=== PATIENT | male | born 1995 | race Hispanic/Latino ===

== ENCOUNTER 2017-10-28 14:22 | Emergency (ER) | payer OTHER ==
[~2017-10-28] VITALS: Ht 188 cm; Wt 102.1 kg
[~2017-10-28 14:22] MED LIST: AUGMENTIN 875-1 EACH PO; CYCLOBENZAPRINE10 M1 PO; NAPROSYN500 M1 PO; PREDNISONE50 M1 PO; TESSALON PERLE100 M1 PO
--- NOTE | 2017-10-28 17:16 | ED GENERAL ADULT ---
History of Present Illness General Chief Complaint: General Adult Stated Complaint: CHEST CONGESTION,COUGH W/BLOODY SPUTUM,SORE THT Source: patient Exam Limitations: no limitations Vital Signs & Intake/Output Vital Signs & Intake/Output Vital Signs Date Time Temp Pulse Resp B/P B/P Pulse O2 O2 Flow FiO2 Mean Ox Delivery Rate 10/28 1844 98.6 83 18 148/82 97 Room Air 10/28 1630 98.5 84 18 141/75 97 Room Air Room Air 10/28 1448 98.2 74 18 128/78 99 Room Air Allergies Coded Allergies: haloperidol (From HALDOL) (Severe, U 10/28/17) Uncoded Allergies: TRANQUILIZER?? (RASH JAW LOCKED 11/25/12) Reconcile Medications Amoxicillin/Potassium Clav (Augmentin 875-125 Tablet) 1 EACH TABLET 1 TAB PO BID BRONCHITIS Azithromycin (Zithromax) 250 MG TABLET 1 DP PO AD BRONCHITIS 2 the first day followed by 1 for days 2-5 Benzonatate (Tessalon Perle) 100 MG CAPSULE 1-2 CAP PO TID PRN COUGH Cyclobenzaprine HCl 10 MG TABLET 1 TAB PO TID PRN muscle relaxant Naproxen (Naprosyn) 500 MG TABLET 1 TAB PO Q12H PRN pain/inflammation Prednisone 50 MG TABLET 1 TAB PO DAILY BRONCHITIS Triage Note: 22M REPORTS CHEST CONGESTION WITH BLOODY SPUTUM FROM COUGH SINCE THIS MORNING. HE REPORTS A SORE THROAT SINCE YESTERDAY. OROPHARYNX PINK AND WITHOUT SWELLING OR EXUDATE. NO GAETANO BLOOD VISUALIZED ON EXAM. SPEECH CLEAR. COLORING APPROPRIATE. MEDICATED WITH MOTRIN AND STREP SWAB SENT TO LAB Triage Nurses Notes Reviewed? yes Onset: Abrupt Duration: hour(s): Timing: recent history HPI: 10/28/17 22-year-old male presents to the emergency department with sore throat, cough and status post Episode of Hemoptysis. No Shortness of Breath. Labs and Chest X-Ray Were Unremarkable. He Has a past Medical History of Sciatica. He is on Neurontin. Past History Travel History Traveled to [place] past 21 day No Medical History Any Pertinent Medical History? see below for history Neurological: NONE EENT: NONE Cardiovascular: NONE Respiratory: NONE Gastrointestinal: NONE Hepatic: NONE Renal: NONE Musculoskeletal: chronic back pain, scoliosis Psychiatric: depression Endocrine: NONE Surgical History Surgical History: none Psychosocial History What is your primary language Polish Tobacco Use: Refused to answer Family History Hx Contributory? No Review of Systems Review of Systems Constitutional: Denies: fever. EENTM: Reports: see HPI. Respiratory: Reports: see HPI, cough, hemoptysis. Cardiovascular: Reports: see HPI. GI: Denies: abdominal pain. Genitourinary: Reports: no symptoms. Musculoskeletal: Reports: see HPI. Skin: Denies: rash. Neurological/Psychological: Denies: headache. Hematologic/Endocrine: Reports: bleeding. Physical Exam Physical Exam General Appearance: well developed/nourished, alert, awake, anxious, mild distress Head: atraumatic, normal appearance Eyes: Bilateral: normal appearance, PERRL, EOMI. Ears, Nose, Throat: pharyngeal erythema Neck: normal inspection, supple, full range of motion Respiratory: normal breath sounds, chest non-tender, no respiratory distress Cardiovascular: regular rate/rhythm Peripheral Pulses: 4+ radial (R), 4+ radial (L) Gastrointestinal: soft, non-tender Back: normal range of motion Extremities: normal inspection Neurologic/Psych: no motor/sensory deficits, awake, alert, oriented x 3 Core Measures ACS in differential dx? No CVA/TIA Diagnosis: No Sepsis Present: No Sepsis Focused Exam Completed? No Progress Differential Diagnoses I considered the following diagnoses in my evaluation of the patient: [ Bronchitis, pulmonary embolism, pneumothorax, pharyngitis] Plan of Care: Orders Procedure Date/time Status PROTHROMBIN TIME 10/28 1731 Complete D-DIMER 10/28 1731 Complete COMPREHENSIVE METABOLIC PANEL 10/28 1731 Complete CBC WITHOUT DIFFERENTIAL 10/28 173 Complete THROAT CULTURE W/QUICK STREP 10/28 1447 Active Laboratory Tests 10/28/17 1739: Anion Gap 12, Estimated GFR > 60, BUN/Creatinine Ratio 16.0, Glucose 99, Calcium 9.5, Total Bilirubin 0.4, AST 19, ALT 32, Alkaline Phosphatase 62, Total Protein 7.3, Albumin 4.4, Globulin 2.9, Albumin/Globulin Ratio 1.5, PT 11.5, INR 1.05, D -Dimer High Sensitivty < 200, CBC w Diff NO MAN DIFF REQ, RBC 5.02, MCV 89.1, MCH 29.5, MCHC 33.1, RDW 12.8, MPV 8.0, Gran % 64.7, Lymphocytes % 26.8, Monocytes % 8.0, Eosinophils % 0.2, Basophils % 0.3, Absolute Granulocytes 5.1, Absolute Lymphocytes 2.1, Absolute Monocytes 0.6, Absolute Eosinophils 0, Absolute Basophils 0 Initial ED EKG: none Departure Departure Disposition: HOME OR SELF CARE Condition: Stable Clinical Impression Primary Impression: Bronchitis Referrals: Unknown (PCP/Family) Departure Forms: Customer Survey General Discharge Information Prescriptions: Current Visit Scripts Azithromycin (Zithromax) 1 DP PO AD #6 TAB 2 the first day followed by 1 for days 2-5 Comments Chest x-ray was negative Critical Care Note Critical Care Note Critical Care Time: non-applicable
[2017-10-28 17:59] LABS: ABSOLUTE BASOPHIL COUNT 0 /CUMM (0.0-0.2); ABSOLUTE EOSINOPHIL COUNT 0 /CUMM (0.0-0.7); ABSOLUTE GRANULOCYTE CT 5.1 /CUMM (1.4-6.5); ABSOLUTE LYMPH COUNT 2.1 /CUMM (1.2-3.4); ABSOLUTE MONOCYTE COUNT 0.6 /CUMM (0.10-0.60); BASOPHIL % 0.3 % (0.0-2.0); EOSINOPHIL % 0.2 % (0-5); GRANULOCYTE % 64.7 % (42.2-75.2); HEMATOCRIT 44.7 % (42-52); MEAN CORPUSCULAR HGB 29.5 PG (27.0-31.0); MEAN CORPUSCULAR HGB CONC 33.1 G/DL (33.0-37.0); MEAN CORPUSCULAR VOLUME 89.1 FL (80.0-94.0); PLATELET COUNT 250 /CUMM (130-400); RBC DISTRIBUTION WIDTH 12.8 % (11.5-14.5); RED BLOOD CELL CT 5.02 /CUMM (4.70-6.10); WHITE BLOOD CELL COUNT 7.9 /CUMM (4.8-10.8)
[2017-10-28 18:05] LABS: PT 11.5 SEC (9.4-12.5)
--- NOTE | 2017-10-28 18:22 | RADIOLOGY REPORT ---
EXAMINATION: XR CHEST CLINICAL INFORMATION: Cough. Hemoptysis. COMPARISON: Chest x-ray 11/25/2012 TECHNIQUE: 2 views of the chest were obtained. FINDINGS: No significant abnormality is noted involving the heart, lungs, mediastinum, bony thorax or soft tissues. IMPRESSION: Unremarkable examination.
[2017-10-28] MEDS ORDERED: ZITHROMAX250 M2 PO (18:35)
[2017-10-28 18:44] VITALS: BP 148/82
== END 2017-10-28 19:23 ==
LOC: ERH 14:22
PROVIDERS: Emergency Medicine
DX: J40 Bronchitis, not specified as acute or chronic (principal)
CPT/HCPCS: 71046; 87147

== ENCOUNTER 2018-02-14 00:16 | Emergency (ER) | payer OTHER ==
[~2018-02-14] VITALS: Ht 188 cm; Wt 104.3 kg
[~2018-02-14 00:16] MED LIST changes: +ZITHROMAX250 M2 PO
[2018-02-14 01:15] LABS: ABSOLUTE BASOPHIL COUNT 0.1 /CUMM (0.0-0.2); ABSOLUTE EOSINOPHIL COUNT 0 /CUMM (0.0-0.7); ABSOLUTE GRANULOCYTE CT 2.5 /CUMM (1.4-6.5); ABSOLUTE LYMPH COUNT 1.3 /CUMM (1.2-3.4); ABSOLUTE MONOCYTE COUNT 0.7 /CUMM (0.10-0.60); BASOPHIL % 1.2 % (0.0-2.0); EOSINOPHIL % 0.5 % (0-5); GRANULOCYTE % 54.4 % (42.2-75.2); MEAN CORPUSCULAR HGB 30.1 PG (27.0-31.0); MEAN CORPUSCULAR HGB CONC 34.4 G/DL (33.0-37.0); MEAN CORPUSCULAR VOLUME 87.5 FL (80.0-94.0); MEAN PLATELET VOLUME 8.1 FL (7.4-10.4); PLATELET COUNT 215 /CUMM (130-400); RBC DISTRIBUTION WIDTH 12.3 % (11.5-14.5); WHITE BLOOD CELL COUNT 4.7 /CUMM (4.8-10.8)
--- NOTE | 2018-02-14 02:30 | ED GI/GU/ABDOMINAL COMPLAINT ---
History of Present Illness General Chief Complaint: Abdominal Pain/Flank Pain Stated Complaint: R FLANK PAIN X 1 DAY Source: patient, family, old records Exam Limitations: no limitations Vital Signs & Intake/Output Vital Signs & Intake/Output Vital Signs Date Time Temp Pulse Resp B/P B/P Pulse O2 O2 Flow FiO2 Mean Ox Delivery Rate 02/14 0053 93 18 140/70 100 Room Air 02/14 0052 Room Air 02/14 0017 104 98 Room Air Allergies Coded Allergies: haloperidol (From HALDOL) (Severe, U 10/28/17) Uncoded Allergies: TRANQUILIZER?? (RASH JAW LOCKED 11/25/12) Reconcile Medications Amoxicillin/Potassium Clav (Augmentin 875-125 Tablet) 1 EACH TABLET 1 TAB PO BID BRONCHITIS Azithromycin (Zithromax) 250 MG TABLET 1 DP PO AD BRONCHITIS 2 the first day followed by 1 for days 2-5 Benzonatate (Tessalon Perle) 100 MG CAPSULE 1-2 CAP PO TID PRN COUGH Cyclobenzaprine HCl 10 MG TABLET 1 TAB PO TID PRN muscle relaxant Naproxen (Naprosyn) 500 MG TABLET 1 TAB PO Q12H PRN pain/inflammation Prednisone 50 MG TABLET 1 TAB PO DAILY BRONCHITIS Triage Note: PT C/O R SIDED FLANK PAIN THAT RADIATES TO THE FRONT. PT REPORTS SYMPTOMS BEGAN THIS MORNING. DENIES URINARY SYMPTOMS, HEAVY LIFTING OR HX OF SIMILAR. DENIES NAUSEA/VOMITING/DIARRHEA. LAST BM THIS MORNING. Triage Nurses Notes Reviewed? yes Onset: Morning Duration: hour(s):, constant, continues in ED Timing: recent history Quality/Severity: sharpness, stabbing Location: right flank Radiation: RUQ Activities at Onset: rest Prior Abdominal Problems: none Past Sexual History: Unobtainable at this time Modifying Factors: Worsens With: coughing, movement, palpation. HPI: 1 day prior to admission patient complains of right-sided flank pain described as sharp worse with palpation and movement turning bending coughing. He denies fever chills nausea vomiting diarrhea cough shortness of breath headache dysuria rash bleeding previous episodes. Past History Travel History Traveled to [place] past 21 day No Medical History Any Pertinent Medical History? see below for history Neurological: NONE EENT: NONE Cardiovascular: NONE Respiratory: NONE Gastrointestinal: NONE Hepatic: NONE Renal: NONE Musculoskeletal: chronic back pain, scoliosis Psychiatric: bipolar disease, depression Endocrine: NONE Surgical History Surgical History: none Psychosocial History What is your primary language Citizen Of [place] Tobacco Use: Never used Family History Hx Contributory? No Review of Systems Review of Systems Constitutional: Reports: no symptoms. EENTM: Reports: no symptoms. Respiratory: Reports: no symptoms. Cardiovascular: Reports: no symptoms. GI: Reports: see HPI, abdominal pain. Genitourinary: Reports: no symptoms. Musculoskeletal: Reports: no symptoms. Skin: Reports: no symptoms. Neurological/Psychological: Reports: no symptoms. Hematologic/Endocrine: Reports: no symptoms. Immunologic/Allergic: Reports: no symptoms. All Other Systems: Reviewed and Negative Physical Exam Physical Exam General Appearance: well developed/nourished, alert, awake, anxious, mild distress Head: atraumatic, normal appearance Eyes: Bilateral: normal appearance, PERRL, EOMI, normal inspection. Ears, Nose, Throat, Mouth: hearing grossly normal, moist mucous membrane Neck: normal inspection, supple, full range of motion, normal alignment Respiratory: normal breath sounds, chest non-tender, no respiratory distress, quiet respiration, lungs clear Cardiovascular: regular rate/rhythm, normal peripheral pulses, norml femoral pulses equa Peripheral Pulses: 4+ carotid (R), 4+ carotid (L) Gastrointestinal: normal bowel sounds, soft, non-tender, no organomegaly Male Genitals: normal genitalia Back: normal inspection, normal range of motion, no vertebral tenderness Extremities: normal range of motion, no ligament instability Neurologic/Psych: no motor/sensory deficits, awake, alert, oriented x 3, normal gait, 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 No Sepsis Present: No Sepsis Focused Exam Completed? No Progress Differential Diagnosis: biliary colic, cholecystitis, gastritis, pancreatitis, UTI/pyelo Plan of Care: Orders Procedure Date/time Status URINALYSIS 02/14 43 Complete COMPREHENSIVE METABOLIC PANEL 02/14 43 Complete CBC WITHOUT DIFFERENTIAL 02/14 43 Complete Laboratory Tests 02/14/18 0110: Urine Color YEL, Urine Clarity CLEAR, Urine pH 6.0, Ur Specific [place] >= 1.030 , Urine Protein NEG, Urine Ketones NEG, Urine Nitrite NEG, Urine Bilirubin NEG, Urine Urobilinogen 0.2, Ur Leukocyte Esterase NEG, Ur Microscopic EXAM NOT REQUIRED, Urine Hemoglobin NEG, Urine Glucose NEG 02/14/18 0101: Anion Gap 10, Estimated GFR > 60, BUN/Creatinine Ratio 18.0, Glucose 99, Calcium 9.4, Total Bilirubin 0.4, AST 34, ALT 39, Alkaline Phosphatase 54, Total Protein 7.2, Albumin 4.3, Globulin 2.9, Albumin/Globulin Ratio 1.5, CBC w Diff NO MAN DIFF REQ, RBC 4.80, MCV 87.5, MCH 30.1, MCHC 34.4, RDW 12.3, MPV 8.1, Gran % 54.4, Lymphocytes % 28.2, Monocytes % 15.7 H, Eosinophils % 0.5, Basophils % 1.2, Absolute Granulocytes 2.5, Absolute Lymphocytes 1.3, Absolute Monocytes 0.7 H, Absolute Eosinophils 0, Absolute Basophils 0.1 Initial ED EKG: none Departure Departure Time of Disposition: 350 Disposition: HOME OR SELF CARE Condition: Stable Clinical Impression Primary Impression: Flank pain, acute Referrals: Patient Has No Primary Care Dr (PCP/Family) Departure Forms: Customer Survey General Discharge Information RELEASE- WORK Prescriptions: Current Visit Scripts Ibuprofen 1 TAB PO Q6P PRN pain #50 TAB with food Cyclobenzaprine HCl 1 TAB PO TID PRN muscle strain #30 TAB
[2018-02-14] MEDS ORDERED: CYCLOBENZAPRINE10 M1 PO (03:53)
[2018-02-14] MEDS ORDERED: IBUPROFEN600 M1 PO (03:53)
[2018-02-14 04:09] VITALS: BP 150/90
== END 2018-02-14 04:10 ==
LOC: ERH 00:16
PROVIDERS: Emergency Medicine
DX: R10.9 Unspecified abdominal pain (principal)
CPT/HCPCS: 81003; 96374; J1885